=== PATIENT | female | born 1970 | race African-American/Black ===

== ENCOUNTER 2022-09-13 03:25 | Emergency (ER) | payer OTHER ==
[~2022-09-13] VITALS: Ht 165.1 cm; Wt 63.5 kg
--- NOTE | 2022-09-13 03:25 | NUR ---
PT BIB [facility] PRE-BOOK. TAKEN TO ER CHAIR
--- NOTE | 2022-09-13 03:28 | NUR ---
Dr. Sarmiento examining patient.
[2022-09-13 03:34] VITALS: BP 128/73
[2022-09-13 03:49] VITALS: BP 128/72
--- NOTE | 2022-09-13 03:51 | NUR ---
PATIENT [facility] POLICE DEPT. PATIENT EXAMINED BY . PATIENT MEDICALLY CLEARED AND RELEASED IN CUSTODY IN STABLE CONDITION. ORIGINAL PRE-BOOK FORM GIVEN TO OFFICER JERARDO [facility] #[id number].Patient discharged with v/s stable. Written and verbal after care instructions given and explained. Patient verbalized understanding. Police with in custody. All questions addressed prior to discharge. Advised to follow up with PMD. Addendum: 09/13/22 at 0512 by VERNA PATIENT [facility] POLICE DEPT. PATIENT EXAMINED BY DR. GARCIA. PATIENT MEDICALLY CLEARED AND RELEASED IN CUSTODY IN STABLE CONDITION. ORIGINAL PRE-BOOK FORM GIVEN TO OFFICER JERARDO.Patient discharged with v/s stable. Written and verbal after care instructions given and explained. Patient verbalized understanding. Police with in custody. All questions addressed prior to discharge. Advised to follow up with PMD.
== END 2022-09-13 03:51 ==
LOC: MED 03:25
DX: F10.90 Alcohol use, unspecified, uncomplicated (principal); F17.210 Nicotine dependence, cigarettes, uncomplicated; Y90.9 Presence of alcohol in blood, level not specified; V49.88XA Car occupant (driver) (passenger) injured in other specified transport accidents, initial encounter; Y93.89 Activity, other specified; Y92.89 Other specified places as the place of occurrence of the external cause; Y99.8 Other external cause status
CPT/HCPCS: 99283